=== PATIENT | female | born 1955 | race Caucasian/White ===

== ENCOUNTER 2018-09-06 10:11 | Inpatient (IN) ==
[2018-09-06] MEDS ORDERED: Lidocaine -MPF 2% 2 ML VIAL ONE (10:28)
[2018-09-06] MEDS ORDERED: Dexamethasone 4 MG/ML VIAL ONE ×2 (10:28→15:38)
[2018-09-06] MEDS ORDERED: *HR* FentaNYL (PF) 100 MCG/2 ML VIAL ONE ×2 (10:28→14:49)
[2018-09-06] MEDS ORDERED: Ondansetron 4 MG/2 ML VIAL ONE ×2 (10:28→15:38)
[2018-09-06] MEDS ORDERED: *HR* Rocuronium Bromide 50 MG/5 ML VIAL ONE (10:28)
[2018-09-06] MEDS ORDERED: *HR* Propofol 200 MG/20 ML VIAL IVP ONE (10:28)
[2018-09-06] MEDS ORDERED: *HR* Succinylcholine 200 MG/10 ML VIAL IVP ONE (10:28)
[2018-09-06] MEDS ORDERED: *HR* Midazolam HCl 2 MG/2 ML VIAL ONE (10:30)
[2018-09-06] MEDS ORDERED: CeFAZolin Syr 2,000MG/20 ML 2,000 MG/20 ML SYRINGE IVPB ONE (10:40)
[2018-09-06] MEDS ORDERED: Ringers Solution, Lactated 1,000 ML IVC SCH (10:45)
[2018-09-06] MEDS ORDERED: *HR* OxyCODONE Immed Rel 5 MG TABLET PO ONE (10:57)
[2018-09-06] MEDS ORDERED: Scopolamine Patch 1.5 MG PATCH.TD72 TD ONE (10:57)
[2018-09-06] MEDS ORDERED: *HR* Remifentanil 1 MG VIAL IVP ONE (11:01)
--- NOTE | 2018-09-06 11:03 | Anesthesia Evaluation PreOp ---
Date of Encounter: 09/06/18 Time of Encounter: 10:59 - Past History Planned Operation: PLIF L4-5 (right-sided radiculopathy) Cardiac History: Denies any Significant Hx Pulmonary History: Smoker (occassional), Other (post-nasal drip) FOOD CASHIER History: Other (Right-sided radiculopathy (right LE weakness, numbness, pain with occassional left LE symptoms)) Other Medical History: Denies Any Significant HX Anesthesia History: No Prior Anesthetic Complications Medications and Allergies Acetaminophen [Tylenol] 500 mg PO Q6HR 08/22/18 [History] Cholecalciferol (D-3) [Vitamin D] 1,000 unit PO DAILY 08/22/18 [History] Loratadine [Claritin] 10 mg PO DAILY 08/22/18 [History] Meloxicam 15 mg PO DAILY 08/22/18 [History] Allergy/AdvReac Type Severity Reaction Status Date / Time No Known Allergies Allergy Verified 08/22/18 07:10 - Meds/Allergy Pre-op Review Medications Reviewed: Yes Allergies Reviewed: Yes Beta Blockers on Current Med List: No Anesthesia Results - Labs Laboratory Tests 08/10/18 08/10/18 08/10/18 14:30 14:30 14:30 WBC 10.8 Hgb 12.9 Hct 39.7 Plt Count 377 PT 10.7 INR 1.0 APTT 33.5 Sodium 135 L Potassium 4.4 Chloride 104 Carbon Dioxide 24 BUN 22 Creatinine 0.63 Est GFR ( Amer) > 60 Est GFR (Non-Af Amer) > 60 BUN/Creatinine Ratio 35 H Anesthesia Exam Last Vital Signs Temp 97.7 F 09/06/18 10:45 Pulse 88 09/06/18 10:45 Resp 18 09/06/18 10:45 BP 178/90 09/06/18 10:45 Pulse Ox 95 09/06/18 10:45 Weight: 82 kg NPO (# of Hours): > 8 hrs - HEENT Pupil (Motor): Pupils equal, EOMI Mallampati: II Teeth: Missing, Poor dentition Oral Opening: Greater than 3 - FOOD CASHIER LOC: Oriented FOOD CASHIER Motor: Deficit RLE FOOD CASHIER Sensory: Deficit: RLE - Cardiac Rhythm: Regular Murmur: None - Pulmonary Breath Sounds: bilateral Clear Respiratory Effort: Symmetrical Anesthesia Assess/Plan ASA Score: 2 Level of consciousness: Cooperative Anesthetic Plan: General, Precautions (patient took tylenol 500 mg this AM; will not given ofirmev pre-op; will pre-treat pain with 5 mg oxycodone IR due to severe pain upon arrival) Monitoring Plan: Standard Monitors Recovery Plan: PACU
[2018-09-06] MEDS ORDERED: Bacitracin 50,000 UNIT, Polymyxin B Sulfate 500,000 UNIT, Sodium Chloride IRRigation 1,... IR ONE (11:05)
[2018-09-06] MEDS ORDERED: Albuterol 2.5 MG/3 ML NEBULIZER ONE (11:10)
[2018-09-06] MEDS ORDERED: Albuterol 2.5 MG/3 ML NEBULIZER IH ONE (11:17)
[2018-09-06] MEDS ORDERED: Esmolol 100 MG/10 ML VIAL IVP ONE (11:24)
--- NOTE | 2018-09-06 11:26 | History & Physical Report ---
Date of Encounter: 09/06/18 Time of Encounter: 11:26 24 Hour HP Update - Instructions Instructions: If the History and Physical is less than 30 days old and was completed prior to A.M. admission and or procedure and has NOT been updated on calendar day of procedure please complete this update prior to performing procedure. - Update Patient reports changes in Medical Condition: No Changes in examination, assessment, or condition: No Changes in Medication: No Preop tests/diagnostics Reviewed: Yes Pre-Op MRSA Screen: Negative Surgery Remains Indicated: Yes Consent for Planned Operative Procedure(s) Verified: Yes - Pre-Operative Checklist Preoperative Checklist Indicated: No Prophylactic Antibiotic Ordered: Yes Home Medications Include Beta Brittney: No Beta Brittney Taken Today (Day of Surgery): No Beta Brittney Taken Yesterday (Day Prior to Surgery): No Is VTE Prophylaxis Indicated?: Yes
[2018-09-06] MEDS ORDERED: EPHEDrine 50 MG/ML VIAL ONE (12:43)
[2018-09-06] MEDS ORDERED: Propofol 500 MG/50 ML INFUS..BTL ONE (12:52)
[2018-09-06] MEDS ORDERED: *HR* HYDROMORPHONE 2 MG/ML VIAL ONE (13:05)
[2018-09-06] MEDS ORDERED: *HR* Promethazine 25 MG/ML VIAL IVP PRN (14:35)
[2018-09-06] MEDS ORDERED: *HR* OxyCODONE Immed Rel 5 MG TABLET PO PRN (14:35)
[2018-09-06] MEDS ORDERED: Ondansetron 4 MG/2 ML VIAL IVP ONE (14:35)
[2018-09-06] MEDS ORDERED: *HR* Labetalol 20 MG/4 ML SYRINGE IVP PRN (14:35)
[2018-09-06] MEDS ORDERED: *HR* Meperidine 25 MG/ML SYRINGE IVP PRN (14:35)
--- NOTE | 2018-09-06 14:43 | Orthopedic Operative Note ---
Date of procedure: 09/06/18 Pre-op diagnosis: Spondylolisthesis, degenerative scoliosis, lumbar stenosis Post-op diagnosis: same Operation/Findings: Posterior lumbar interbody fusion L4-L5: The patient successfully underwent general endotracheal anesthesia. The patient was given antibiotics prior to the start of the procedure. Compression boots and stockings were used for deep vein thrombosis prophylaxis. A Tracy catheter was placed. Leads for neuro monitoring were placed on the upper and lower extremities. This included the cranium. The neuro monitoring personnel confirmed there were satisfactory readings prior to the start of the procedure. The patient was turned prone on the Edwin table. The back was prepped and draped in the usual sterile fashion. An incision was was marked and centered over the involved levels in the mid line. The incision was deepened through the lumbar fascia. Bovie cautery and Gerardo elevators were used to reflect the paraspinal musculature at the lateral extent of the transverse processes of the involved levels. Michelle clamps were placed over the spinous processes. An intraoperative lateral fluoroscopy graft was obtained. A conversation was held between the surgeon and radiologist and both confirmed we had the correct operative levels. We then placed pedicle screws in standard fashion with the aid of fluoroscopy and anatomic landmarks. Briefly a starter awl was used. A gearshift was subsequently used to enter the pilot instructor hole via a transpedicular route into the vertebral body. The pilot instructor hole was tapped with an undersized instrument, and subsequently 6.5 x 40 mm pedicle screws were placed bilaterally at the indicated levels. The screws were tested with the aid of the neurologic monitoring staff via pedicle screw stimulation. All reading suggested there was no significant cortical wall breech. The screws were also evaluated fluoro- graphically and appeared to be in satisfactory position. We then turned our attention to the decompression portion of the procedure. We removed the supraspinous and intersp inous ligaments and subsequently the insertion of the ligamentum flavum on the undersurface of the proximal lamina was dislodged with a curette. We then removed the ligamentum flavum as well as undercut the facets at this level to decompress the lateral recesses. We also performed a laminectomy. After the decompression which was over and above that which was required to place the interbody graft, the foramen and traversing roots at this level were found to be free and patent. We also took part of the medial facet in order to aid in the decompression. We then protected the neural elements including the thecal sac and traversing nerve root on the right with a dural retractor. We made an annulotomy into the disc space and then removed disc material using lPituitary instruments. We trialed various size grafts after the endplates were prepared for graft insertion. A 10 x 26 enter body graft fit well within the disc space. We obtained some bone from the posterior superior iliac spine through us a separate incision and combined with this with the bone which we had saved from the laminectomy portion of the procedure. This autograft bone was first placed in the anterior portion of the disc space and additional bone was placed within the interbody graft spacer. We then placed the interbody graft spacer obliquely across the disc space towards the midline while protecting the neural elements with a root retractor. When the graft was found to be in satisfactory position the publications editor was removed. We then copiously irrigated the wound. We then decorticated the transverse processes as well as the facet joints of the involved levels to aid in the posterolateral fusion. We placed autograft bone in the lateral gutters over these regions. We then placed rods within the screw heads of the involved levels and first locked the distal screws and then subsequently locked the proximal screws so as to improve and reduce the spondylolisthesis previously seen. We then closed the wound in layers with 1 Vicryl for the fascia, 2-0 Vicryl. Subcutaneous tissue, and Dermabond was used for skin closure. Sterile dressings were placed over the wound. The patient was turned supine on a hospital bed and extubated. All sponge instruments and needle counts were correct at the end of the procedure. The patient tolerated the procedure well without complications. Anesthesia: GETA Surgeon: Yovani Gonzalez Jr Was there an event marketing assistant present: No Estimated blood loss (cc): 100 Specimen: None Condition: stable Disposition: PACU
[2018-09-06] MEDS: *HR* HYDROmorphone (PF) 1 MG/ML SYRINGE IVP PRN ×2 (14:53→15:03)
[2018-09-06] MEDS ORDERED: *HR* Meperidine 25 MG/ML SYRINGE ONE (15:07)
--- NOTE | 2018-09-06 15:41 | Anesthesia Evaluation Post Op ---
Date of Encounter: 09/06/18 Time of Encounter: 15:40 - Vital Signs Vital Signs: Vital Signs/O2 Sat, Most Current Temp Pulse Resp BP Pulse Ox 98.4 F 90 16 117/72 99 09/06/18 15:22 09/06/18 15:31 09/06/18 15:31 09/06/18 15:22 09/06/18 15:31 - Lungs Lungs: Clear Ascult./Percussion - Airway Airway: Non-obstructed - Cardiovascular Regular Rate - Mental Status Mental Status: Alert & Oriented, Answers Appropriately - Pain Pain Scale: 3 Pain Scale used: Numeric (1 - 10) - Nausea Vomiting Nausea Vomiting: Not Present - Hydration Hydration: Ice chips, Tracy catheter - Discharge PostOp Status: Transfer Patient to floor
[2018-09-06] MEDS ORDERED: *HR* PHENYLEPHRINE 1,000 MCG/10 ML SYRINGE IVP ONE (15:47)
[2018-09-06] MEDS ORDERED: Ondansetron 4 MG/2 ML VIAL IVP PRN (16:04)
[2018-09-06] MEDS ORDERED: Acetaminophen 325 MG TABLET PO PRN (16:04)
[2018-09-06] MEDS ORDERED: Naloxone 0.4 MG/ML INJ IVP PRN (16:04)
[2018-09-06] MEDS: Ringers Solution, Lactated 1,000 ML IVC SCH (17:35)
[2018-09-06] MEDS: *HR* HYDROcodone/Acet 5/325 mg TABLET PO PRN (21:37)
[2018-09-07] MEDS: *HR* OxyCODONE Immed Rel 5 MG TABLET PO PRN ×3 (01:19→21:19)
[2018-09-07] MEDS: Ringers Solution, Lactated 1,000 ML IVC SCH (03:51)
[2018-09-07] MEDS: *HR* HYDROcodone/Acet 5/325 mg TABLET PO PRN (07:32)
--- NOTE | 2018-09-07 08:39 | Orthopedics Progress Note ---
Date of Encounter: 09/07/18 Time of Encounter: 08:00 - Assessment and Plan (1) Status post lumbar spinal fusion Status: Acute (2) Lumbar stenosis Status: Chronic Qualifiers: Neurogenic claudication status: unspecified Qualified Code(s): M48.061 - Spinal stenosis, lumbar region without neurogenic claudication (3) Degenerative scoliosis Status: Chronic (4) Spondylolisthesis Status: Chronic Qualifiers: Spinal region: unspecified Qualified Code(s): M43.10 - Spondylolisthesis, site unspecified Subjective Principal diagnosis: s/p PLIF Interval history: POD#1 Date of procedure: 09/06/18 Pre-op diagnosis: Spondylolisthesis, degenerative scoliosis, lumbar stenosis Post-op diagnosis: same Operation/Findings: Posterior lumbar interbody fusion L4-L5 Patient participating with therapy Ambulating with walker Patient neurovascularly intact Dressing c/d/i Objective Vital signs: Vital Signs Temp Pulse Resp BP Pulse Ox 09/07/18 06:45 98.7 F 58 16 117/74 95 09/07/18 04:17 98.4 F 56 14 111/71 94 09/07/18 01:17 61 116/71 09/06/18 23:34 97.6 F 66 15 102/63 99 09/06/18 19:30 98.3 F 84 16 100/63 98 09/06/18 18:57 97.7 F 98 16 109/70 98 09/06/18 17:38 97.8 F 93 17 119/78 99 09/06/18 16:38 97.5 F L 85 18 117/75 97 09/06/18 15:55 97.9 F 88 16 111/77 99 09/06/18 15:42 98.2 F 80 16 118/74 99 09/06/18 15:32 90 16 117/76 99 09/06/18 15:22 98.4 F 92 16 117/72 99 09/06/18 15:12 101 16 124/80 99 09/06/18 15:02 99 16 103/67 100 09/06/18 14:52 97.9 F 99 18 119/74 94 09/06/18 10:45 97.7 F 88 18 178/90 95 Intake and Output 09/06/18 09/07/18 09/07/18 23:59 07:59 15:59 Intake Total 1760 / 1760 1000 / 1000 Output Total 1949 3000 / 3000 Balance -190 / -190 -1999 / -1999 Intake: IV Fluids 100 / 100 1000 / 1000 Lactated Ringers 1,000 ML @ 100 1000 / 1000 mls/hr IVC .Q10H PIPPA Rx#: [id number] Ancef 2,000 MG In 0.9 % Sodium 100 / 100 Chloride 100 ML @ 200 mls/hr IVPB Q8H PIPPA Rx#:[id number] Oral 1660 / 1660 Output: Catheter 1949 3000 / 3000 Other: Meal Dinner Percent of Meal Consumed 0% Weight 82.7 kg Patient Weight 09/07/18 23:59 Weight 82.7 kg Consult Discharge Plan - Plan Referrals: Karen Nova [Primary Care Provider] - Prescriptions: OxyCODONE Immed Rel [Roxicodone 5 MG] 5 mg PO Q6HR PRN 7 Days #28 tablet PRN Reason: Severe Pain Docusate Sodium [Colace] 100 mg PO BID 5 Days #10 capsule Tizanidine HCl 4 mg PO TID PRN 7 Days #21 tablet PRN Reason: Spasms
[2018-09-07] MEDS: Loratadine 10 MG TABLET PO SCH (11:11)
[2018-09-07] MEDS: Cholecalciferol (D-3) 1,000 UNIT TABLET PO SCH (11:12)
[2018-09-08] MEDS: *HR* OxyCODONE Immed Rel 5 MG TABLET PO PRN ×3 (01:54→11:23)
[2018-09-08] MEDS: Loratadine 10 MG TABLET PO SCH (09:32)
[2018-09-08] MEDS: Cholecalciferol (D-3) 1,000 UNIT TABLET PO SCH (09:32)
--- NOTE | 2018-09-08 10:56 | Orthopedics Progress Note ---
Date of Encounter: 09/08/18 Time of Encounter: 08:30 - Assessment and Plan (1) Status post lumbar spinal fusion Status: Acute (2) Degenerative scoliosis Status: Chronic (3) Lumbar stenosis Status: Chronic Qualifiers: Neurogenic claudication status: unspecified Qualified Code(s): M48.061 - Spinal stenosis, lumbar region without neurogenic claudication (4) Spondylolisthesis Status: Chronic Qualifiers: Spinal region: unspecified Qualified Code(s): M43.10 - Spondylolisthesis, site unspecified Subjective Principal diagnosis: s/p PLIF Interval history: POD#2 Date of procedure: 09/06/18 Pre-op diagnosis: Spondylolisthesis, degenerative scoliosis, lumbar stenosis Post-op diagnosis: same Operation/Findings: Posterior lumbar interbody fusion L4-L5 Patient doing well - desiring discharge Neurovascularly intact Dressing c/d/i Pending xray results and Dr. Gonzalez's evaluation - patient to discharge today. Objective Vital signs: Vital Signs Temp Pulse Resp BP Pulse Ox 09/08/18 10:55 98.5 F 86 16 93/61 98 09/08/18 06:52 98.4 F 81 18 104/66 94 09/08/18 04:00 98.7 F 98 15 91/49 95 09/08/18 01:52 82 112/62 09/07/18 19:43 97.7 F 76 19 120/76 97 09/07/18 14:30 98.4 F 87 16 104/68 99 09/07/18 12:00 98.6 F 82 16 101/67 98 Intake and Output 09/07/18 09/08/18 09/08/18 23:59 07:59 15:59 Intake Total 700 / 700 120 / 120 Output Total 0 / 0 Balance 700 / 700 120 / 120 Intake: Oral 700 / 700 120 / 120 Output: Urine 0 / 0 Other: Meal Breakfast Percent of Meal Consumed 75% # Voids 1 2 1 Consult Discharge Plan - Plan Referrals: Karen Nova [Primary Care Provider] - Prescriptions: OxyCODONE Immed Rel [Roxicodone 5 MG] 5 mg PO Q6HR PRN 7 Days #28 tablet PRN Reason: Severe Pain Docusate Sodium [Colace] 100 mg PO BID 5 Days #10 capsule Tizanidine HCl 4 mg PO TID PRN 7 Days #21 tablet PRN Reason: Spasms
[2018-09-08] MEDS ORDERED: tiZANidine 4 MG TABLET PO PRN (11:42)
--- NOTE | 2018-09-08 14:16 | Discharge Summary ---
Orders not resulted at time of discharge: Pending orders 09/06/18 12:45 XR fluoroscopy <1 hr [XR] Routine 09/08/18 11:00 XR lumbar spine 2-3V [XR] Routine Date of Encounter: 09/08/18 Time of Encounter: 08:30 - Discharge Diagnosis (1) Status post lumbar spinal fusion Priority: Primary Status: Acute (2) Degenerative scoliosis Priority: Primary Status: Chronic (3) Lumbar stenosis Priority: Primary Status: Chronic Qualifiers: Neurogenic claudication status: unspecified Qualified Code(s): M48.061 - Spinal stenosis, lumbar region without neurogenic claudication (4) Spondylolisthesis Priority: Primary Status: Chronic Qualifiers: Spinal region: unspecified Qualified Code(s): M43.10 - Spondylolisthesis, site unspecified - Hospital Course Hospital course: Ms. Eugene is a 63 year old female POD#2 Date of procedure: 09/06/18 Pre-op diagnosis: Spondylolisthesis, degenerative scoliosis, lumbar stenosis Post-op diagnosis: same Operation/Findings: Posterior lumbar interbody fusion L4-L5 Patient had uneventful postoperative course Participated in PT/OT and discharged home with rehab program Xray films reviewed Keep dressing clean and dry Wear LSO with all activity - Time Spent with Patient Total time spent providing and/or coordinating discharge services: - Discharge Medications Prescriptions: OxyCODONE Immed Rel [Roxicodone 5 MG] 5 mg PO Q6HR PRN 7 Days #28 tablet PRN Reason: Severe Pain Docusate Sodium [Colace] 100 mg PO BID 5 Days #10 capsule Tizanidine HCl 4 mg PO TID PRN 7 Days #21 tablet PRN Reason: Spasms Home Medications: Acetaminophen [Tylenol] 500 mg PO Q6HR PRN 08/22/18 [History] Cholecalciferol (D-3) [Vitamin D] 1,000 unit PO DAILY 08/22/18 [History] Loratadine [Claritin] 10 mg PO DAILY 08/22/18 [History] Docusate Sodium [Colace] 100 mg PO BID 5 Days #10 capsule 09/08/18 [Rx] OxyCODONE Immed Rel [Roxicodone 5 MG] 5 mg PO Q6HR PRN 7 Days #28 tablet 09/08/18 [Rx] Tizanidine HCl 4 mg PO TID PRN 7 Days #21 tablet 09/08/18 [Rx] Allergies/Adverse Reactions: Allergy/AdvReac Type Severity Reaction Status Date / Time No Known Allergies Allergy Verified 09/06/18 11:10 Date of admission: 09/06/18 15:49 Primary care physician: Karen Nova Consults: 09/06/18 16:04 Consult to Occupational Therapy [CONS] Routine Comment: Evaluate, develop and implement POC Reason for Consult: Postoperative rehabilitation Does patient have active BEDREST order?: No Is patient medically & hemodynamically stable?: Yes Patient assessed for mobility or mobilized this visit?: No Consult to Physical Therapy [CONS] Routine Comment: Evaluate, develop and implement POC Reason for Consult: Postoperative rehabilitation Does patient have active BEDREST order?: No Is patient medically & hemodynamically stable?: Yes Patient assessed for mobility or mobilized this visit?: No Consult to Spine Navigator [CONS] [CONS] Routine 09/06/18 16:31 Consult to Pastoral Services [CONS] Routine Comment: Discharging clinician: Yovani Gonzalez Jr - Impressions ITS Impressions Lumbar Spine X-Ray 09/06/18 12:45 IMPRESSION: 1. L4-5 discectomy with spacer placement and L4-5 transpedicular spinal fixation. 2. No unexpected retained foreign body. 3. Overlying surgical skin closure nyasia. 4. Correlate with procedural report. D/ / Steve Montez / Steve Montez Interpreting Provider: Steve Montez - Patient Status Disposition: Home, Self-Care Condition: Good Functional capacity at discharge: uses cane/walker Overall status at discharge: patient is progressing back to baseline - Discharge Instructions Follow Up With: Karen Nova [Primary Care Provider] - - Diet and Activity Activity: as per physical therapy Diet: advance to your usual diet
[2018-09-08] MEDS: *HR* HYDROcodone/Acet 5/325 mg TABLET PO PRN (14:44)
[2018-09-08 16:55] VITALS: BP 104/67
== END 2018-09-08 18:12 | disposition home or self-care (01) | DRG 455 ==
LOC: SAMDAY 10:11 → 3NENU 15:49
PROVIDERS: ADMIT Orthopaedic Surgery Orthopaedic Surgery of the Spine; ATTEND Orthopaedic Surgery Orthopaedic Surgery of the Spine